=== PATIENT | female | born 1970 | race Caucasian/White ===

== ENCOUNTER 2016-12-05 05:19 | Day surgery (SDC) | payer OTHER ==
[~2016-12-05] VITALS: Ht 167.6 cm; Wt 104.3 kg
[~2016-12-05 05:19] MED LIST: ACETAZOLAMIDE500 MG PO; ALPHAGAN P100 DROP/5 LEFT EYE; COSOPT EYE DROPS5 ML LEFT EYE; DULERA 100 MCG/13 GM IH; EFFEXOR37.5 MG PO; ISOPTO ATROPINE15 ML LEFT EYE; PRED FORTE100 DROP/5 LEFT EYE; PRINIVIL20 MG PO; PROVENTIL,2.5 MG/3 M IH; RABEPRAZOLE SOD20 MG PO; RISPERDAL0.5 MG PO; TIMOPTIC-0100 DROP/1 LEFT EYE; VENTOLIN HFA18 GM IH; XALATAN2.5 ML LEFT EYE
[2016-12-05 06:10] LABS: HEMATOCRIT 40.5 % (36.0-46.0); MCH 28.3 PG (29.0-34.0); MCHC 34.1 G/DL (30.0-36.0); PLATELET COUNT 213 K/uL (156-360); RBC DIS.WIDTH-CV 14.1 % (11.8-14.6); RBC DIS.WIDTH-SD 41.9 % (39-53); RED BLOOD COUNT 4.88 M/uL (3.80-5.20); WHITE BLOOD COUNT 8.7 K/uL (4.1-10.2)
[2016-12-05 06:17] LABS: CHLORIDE 116 mEq/L (99-109); POTASSIUM 4.1 mEq/L (3.7-5.4); SODIUM 143 mEq/L (136-147)
[2016-12-05 06:19] LABS: GLUCOSE 111 mg/dL (70-99)
[2016-12-05 06:20] LABS: ANION GAP 8 MEQ/L (2-14)
[2016-12-05 06:21] LABS: TOTAL BILIRUBIN 0.3 mg/dL (0.0-1.0)
[2016-12-05 06:22] LABS: ALKALINE PHOSPHATASE 105 IU/L (3-129)
[2016-12-05 06:23] LABS: GFR ESTIMATE (CALCULATED) > 59 mL/min/
[2016-12-05 06:24] LABS: UREA NITROGEN (BUN) 21 mg/dL (9-23)
[2016-12-05 09:20] VITALS: BP 143/76
[2016-12-05 09:46] VITALS: BP 169/76
== END 2016-12-05 09:57 | disposition home or self-care (01) ==
LOC: SDC 05:19
PROVIDERS: Ophthalmology
DX: H43.392 Other vitreous opacities, left eye (principal); H26.102 Unspecified traumatic cataract, left eye; H35.372 Puckering of macula, left eye; I10 Essential (primary) hypertension; M19.90 Unspecified osteoarthritis, unspecified site; F17.200 Nicotine dependence, unspecified, uncomplicated; Z88.0 Allergy status to penicillin
CPT/HCPCS: 80053; 85027; 93005; J0690; J1100; J1120; J1885; J2405; J2795; J3010; J3300